=== PATIENT | male | born 1985 | race Caucasian/White ===

== ENCOUNTER 2019-12-01 12:35 | Emergency (ER) | payer OTHER, SELFPAY ==
[2019-12-01 12:56] VITALS: BP 128/79; PULSE 94; RESP 16; TEMP 37.1; O2SAT 99
--- NOTE | 2019-12-01 13:13 | ED.ANIMALBIT ---
HPI - Animal Bite General Chief Complaint: Animal Bite Stated Complaint: Cat Bite Left thumb Time Seen by Provider: 12/01/19 13:06 Source: patient and RN notes reviewed Mode of arrival: ambulatory Limitations: no limitations History of Present Illness HPI narrative: Patient presents today with a wound and pain to his left hand. He was bit by his cat last night and states the pain, swelling, and redness have been worsening since onset. Currently rates his pain 4/10, which increases significantly with movement. He has tried no [id number] medication prior to arrival. He is up-to-date on his tetanus vaccine. Cats are UTD on vaccines. MD complaint: animal bite Related Data Allergies Allergy/AdvReac Type Severity Reaction Status Date / Time No Known Allergies Allergy Verified 12/01/19 12:55 Review of Systems Review of Systems: Narrative: CONSTITUTIONAL: Denies body aches, fever, chills, or sweats. EYES: Denies visual changes, redness, or discharge. ENT: Denies rhinorrhea, congestion, sore throat, or otalgia. CARDIOVASCULAR: Denies chest pain, palpitations, or edema. RESPIRATORY: Denies cough or dyspnea. GASTROINTESTINAL: Denies abdominal pain, nausea, vomiting, or diarrhea. GENITOURINARY: Denies dysuria or hematuria. SKIN: Denies rash, itching. + Cat bite to left hand MUSCULOSKELETAL: Denies back pain, joint pain, or myalgia. NEUROLOGIC: Denies headache, numbness, tingling, or weakness. PSYCH: Denies depression or anxiety. PMFSH Comments At time of signature, I have reviewed and agree with nursing past medical, surgical, social and family history unless otherwise noted. Please see nursing chart for further information. There is no relevant family history pertinent to the presenting complaint Exam Narrative: Exam Narrative: GENERAL: Well-appearing, well-nourished, and in no acute distress. HEAD: Normocephalic, atraumatic. EYES: EOMI. No redness or drainage. Conjunctivae normal. ENT: Mucous membranes pink and moist. NECK: Normal AROM. CHEST: No respiratory distress. EXTREMITIES: 5 puncture wounds to left 1st finger. Finger is mildly edematous and erythematous, extending to the thenar eminence. Distal sensation intact. Capillary refill normal. AROM of all fingers and wrist is slightly limited due to pain. No red streaking noted. SKIN: Warm, dry, no rash. Capillary refill normal. Normal skin turgor. NEURO: No focal deficits. Alert and oriented x3. Gait steady. PSYCH: Normal affect. No signs of depression or anxiety. Course Vital Signs Vital signs: Vital Signs Temperature 98.7 F 12/01/19 12:56 Pulse Rate 94 12/01/19 12:56 Respiratory Rate 16 12/01/19 12:56 Blood Pressure 128/79 12/01/19 12:56 Pulse Oximetry 99 12/01/19 12:56 Temperature 98.7 F 12/01/19 12:56 Pulse Rate 94 12/01/19 12:56 Respiratory Rate 16 12/01/19 12:56 Blood Pressure 128/79 12/01/19 12:56 Pulse Oximetry 99 12/01/19 12:56 Reviewed. Pt has been instructed to follow up with his PCP regarding his elevated blood pressure today. MDM - Animal Bite Differential Diagnosis Differential diagnosis: Likely cat bite Critical Care Time Critical Care Time Critical Care Time: No Discharge Plan Discharge Clinical Impression: Cat bite Qualifiers: Encounter type: initial encounter Qualified Code(s): W55.01XA - Bitten by cat, initial encounter Patient Disposition: Home, Self-Care Condition: Stable Instructions: Antibiotic Form, Animal Bite (ED) Additional Instructions: Please take the Augmentin as prescribed until gone. Take Tylenol or ibuprofen at home for pain. Monitor for worsening infection or red streaking up the arm, and please go to the ER immediately if these occur. Keep the wounds clean and dry. Follow-up with your doctor next week if symptoms are not improving. Your blood pressure was elevated above 120/80 today at Urgent Care. This puts you above the threshold for follow up. P
== END 2019-12-01 13:17 | disposition home or self-care (01) ==
PROVIDERS: Emergency Provider Nurse Practitioner
DX: S61.452A Open bite of left hand, initial encounter (principal); W55.01XA Bitten by cat, initial encounter; R03.0 Elevated blood-pressure reading, without diagnosis of hypertension
CPT/HCPCS: 99203; G0463